=== PATIENT | male | born 1955 ===

== ENCOUNTER 2021-01-02 08:37 | Emergency (ER) | payer SELFPAY ==
[2021-01-02] MEDS ORDERED: Silver Sulfadiazine 1% Crm 50 GM Tube TOP ONE (09:00)
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
== END 2021-01-02 09:27 | disposition home or self-care (01) ==
LOC: DL.ED 08:37
DX: T24.211A Burn of second degree of right thigh, initial encounter (principal); T21.25XA Burn of second degree of buttock, initial encounter; X10.0XXA Contact with hot drinks, initial encounter
CPT/HCPCS: 16020; 99283-25; A9270-GY